=== PATIENT | male | born 1950 | race Hispanic/Latino ===

== ENCOUNTER 2017-10-29 08:09 | Day surgery (SDC) | payer OTHER ==
[2017-10-21 10:17] VITALS: BMI 27.3
[2017-10-29] MEDS ORDERED: Propofol 10 mg/ml Inj (20 ML) ONE (10:08)
[2017-10-29 10:59] VITALS: TEMP 97.6
[2017-10-29] MEDS ORDERED: Sodium Chloride 0.9% 1,000 ML IV SCH (11:00)
[2017-10-29 11:53] VITALS: BP 123/86; PULSE 68; RESP 18; O2SAT 99
== END 2017-10-29 12:00 | disposition home or self-care (01) ==
LOC: ENDO 08:09 → EDSEX 09:00 → ENDO 12:00
PROVIDERS: ATTEND Internal Medicine Gastroenterology
DX: Z12.11 Encounter for screening for malignant neoplasm of colon (principal); K64.8 Other hemorrhoids; Q43.8 Other specified congenital malformations of intestine; K52.9 Noninfective gastroenteritis and colitis, unspecified
CPT/HCPCS: 45380; 88305; J2704; J3010; J7040 ×2